=== PATIENT | female | born 1985 | race Caucasian/White ===

== ENCOUNTER 2016-11-15 06:10 | Inpatient (IN) | payer OTHER ==
--- NOTE | 2016-11-13 13:31 | History & Physical ---
General Information and HPI MD Statement: I have seen and personally examined ROMANA PULIDO and documented this H&P. The patient is a 30 year old female at 39 ] weeks and [2] days gestation who presented with a chief complaint of [elective repeat ]. Source of Information: patient Exam Limitations: no limitations History of Present Illness: 30-year-old G5 para 20-2 at 39 weeks 2 days intrauterine , here for elective repeat section. Patient has no complaints, denies contractions, vaginal bleeding or leakage of fluid. Reports good movement. care started at 18 weeks, prior section 2, patient is on methadone maintenance program, she takes subtle 65 mg daily. GBS negative , hemoglobin A1c 4.8 Allergies/Medications Allergies: Coded Allergies: No Known Drug Allergies (11/15/16) latex (ITCHING 11/15/16) Home Med list Doxylamine/Pyridoxine HCl (DicleStarteeds Dr 10-10 MG Tablet) 10 MG-10 MG TABLET.DR 2 TAB PO QPM NAUSEA (Reported) Methadone HCl 10 MG/5 ML SOLUTION 65 MG PO DAILY MENTAL HEALTH (Reported) Vit No.130/Iron/FA ( Tablet) 27 MG IRON-800 MCG TABLET 1 TAB PO DAILY (Reported) Compliance With Home Meds: GOOD Past History exploitation analyst History : 5 Para: 2 Last Menstrual Period: Unknown Estimated Delivery Date: 11/20/2016 Past exploitation analyst History: section x1 Past Pregnancies Past Pregnancies: Date of Delivery: 06/27/2013 Gestational Age: 42 weeks Weight: 7 lbs. 9 oz. Type of Delivery: Anesthesia: spinal Complications: None Medical History Blood Transfusion Hx: No Neurological: NONE EENT: otitis media Cardiovascular: NONE Respiratory: asthma Gastrointestinal: NONE Hepatic: NONE Renal: NONE Musculoskeletal: NONE Psychiatric: depression, opioid dependence Endocrine: NONE Blood Disorders: NONE Cancer(s): NONE TUBER MACHINE CUTTER/Reproductive: NONE Other Medical Hx: vertigo Surgical History Pertinent Surgical History: , N Past Family/Social History Psychosocial History Where do you live? Home Primary Language: Albanian Smoking Status: Current Everyday Smoker ETOH Use: denies use Illicit Drug Use: patient takes methadone maintenance 65 mg per day Review of Systems Review of Systems Constitutional: Reports: no symptoms. EENTM: Reports: no symptoms. Cardiovascular: Reports: no symptoms. Respiratory: Reports: no symptoms. GI: Reports: no symptoms. Genitourinary: Reports: see HPI. Musculoskeletal: Reports: no symptoms. Skin: Reports: no symptoms. Neurological/Psychological: Reports: no symptoms. Hematologic/Endocrine: Reports: no symptoms. Immunologic/Allergic: Reports: no symptoms. All Other Systems: Reviewed and Negative Post Menopausal: No Exam & Diagnostic Data Obstetric Exam Wgt Gained During : 26lbs Pelvimetry: adequate Dilation (cm): 0 Effacement (%): 20 Station: -3 Membranes: intact Fluid: unknown Fundal Height (cm): 39 Multiple Gestation? No Contractions: occasional Infant #1 - FHR Baseline: 140 Category: 1 Estimated Weight: 3000g Presentation: vertex Patient for Induction? No Physical Exam: VSS General: NAD Abdomen: gravid, soft, nontender Ext: DCT(-) Labs Blood Type & Rh: O positive Antibody Screen: negative Hct/Hgb & Platelets #1: 12.3/37%,PLT [id number] Hct/Hgb & Platelets #2: 12.9/38.6%,PLT [id number] Rubella: immune VDRL #1: negative VDRL #2: negative HbsAg: negative HIV #1: negative HIV #2 negative 1 Hr PG: pt refused Group B Strep: negative Initial Ultrasound: IUP at 18 wks Anatomy Ultrasound: normal Genetic Testing: normal Assessment/Plan Assessment/Plan: 30-year-old G5 para 2021, 39 weeks 2 days intrauterine , prior section,pt is on methadone maintenance 1. Admit patient. 2. Prepare for OR for repeat section As Ranked By This Provider Problem List: 1. 2. History of Core Measures/Miscellaneous Venous Thromboembolism VTE Risk Factors: / VTE Contraindications: No Contraindications VTE Prophylaxis Ordered Inpt: Early Ambulation VTE Diagnosis: No Beta Suzanne Is Beta Suzanne a Home Med? No Antibiotics Is Patient on Antibiotics? No Attending MD Review Statement Attending Statement Attending MD Statement: examined this patient, discussed with family, discussed w/nursing Attending Statement Attending MD Statement: examined this patient, discussed with family, discussed w/nursing
[~2016-11-15] VITALS: Ht 154.9 cm; Wt 73.5 kg
[~2016-11-15 06:10] MED LIST: AUGMENTIN 875 M1 TAB PO; BUPROPION HCL150 M4 PO; BUPROPION HCL150 MG PO; MECLIZINE HCL25 MG PO; METHADONE10 MG/5 M2 PO; MULTI-DAY VITA1 EACH PO; NUTRITIONAL PO; PROAIR HFA0.09 MG/Ac INH; ROBITUSSIN W/CO10 ML PO; ZOFRAN ODT4 M1 PO
[2016-11-15] MEDS ORDERED: PRENATAL TABLE1 EAC2 PO (09:58)
[2016-11-15] MEDS ORDERED: DICLEGIS DR 101 EACH PO (10:02)
[2016-11-15 10:41] VITALS: BP 138/89
--- NOTE | 2016-11-15 11:31 | Operative Report ---
Operative/Inv Procedure Report Surgery Date: 11/15/16 Name of Procedure: Repeat low transverse section via Pfannenstiel Pre-Operative Diagnosis: 39 2/7wks, prior section, for elective repeat Post-Operative Diagnosis: same Estimated Blood Loss: 600ml Surgeon/Jig Builder Helper: JORGE L MISHRA,MAHESH Leblanc MD Anesthesia: spinal IV Fluids: 1800ml LR Urine Output: 300ml clear urine at the end of procedure Specimens: placenta Complications: None Condition: Stable Operative Indication: 30-year-old G5 para 20-2 at 39 weeks 2 days intrauterine , prior section, for elective repeat Operative/Procedure Note Note: The patient was taken to the operating room where spinal anesthesia was found to be adequate. She was then prepared and draped in the usual sterile fashion in the dorsosupine position with a leftward tilt. A Pfannenstiel skin incision was then made with the scalpel and carried through to the underlying layer of the fascia with the Bovie. The fascia was incised in the midline and the incision extended laterally with the Cramer scissors. The inferior aspect of this fascial incision was then grasped with the Corie clamps, elevated, and the underlying rectus muscle dissected off with Cramer scissors. Attention was then turned to the superior aspect of this incision which, in a similar fashion, was grasped, tented up with Corie clamps, and the rectus muscle dissected off with Cramer scissors. The rectus muscle was then in the midline, and the peritoneum identified, tented up, and entered sharply with the Metzenbaum scissors. The peritoneal incision was then extended superiorly and inferiorly with good visualization of the bladder. The bladder blade was then inserted and the vesicouterine peritoneum identified, grasp with the pickup and entered sharply with the Metzenbaum scissors. The incision was then extended laterally and the bladder flap created digitally. The bladder blade was then reinserted and the lower uterine segment incised in a transverse fashion with the scalpel. The uterine incision was then extended laterally. The bladder blade was removed and the infant head delivered atraumatically. The nose and mouth was suctioned with the suction bulb, and cord clamped and cut. The patient was handed off to the waiting pediatricians. Cord blood was sent. The placenta was then removed manually, the uterus exteriorized, and cleared of all clots and debris. The uterine incision was repaired with 0 Vicryl in a running locked fashion. A second layer of the same suture was used to obtain hemostasis. And the right site corner of the uterine incision bleeding was noticed. And the [place] stitch was placed at right site corner of the incision , hemostasis assured. In the midline and the incision small bleeding encountered, 2 figure of 8 suture was used to achieve hemostasis. The uterus returned to the abdomen, the gutters were cleared of all clots, Surgicel was placed around the uterine incision site. The peritoneum closed with 3-0 Vicryl. The rectus muscle were reapproximated with 2-0 Vicryl. The fascia was reapproximated with 0 Vicryl in a running fashion. 3O plain suture was used to reapproximated subcutaneous adipose tissue. The skin was closed with 4-0 Vicryl subcuticularly. The patient tolerated the procedure well. Sponge, lap and needle counts were correct 2. Patient was taken to the recovery room in stable condition Findings: Live female infant in cephalic presentation, DOMINIQUE position. Clear amniotic fluid upon entering the uterus, pediatrics present at delivery. weigh 3010 g, 9 and 9. Normal uterus and tubes and ovaries
[2016-11-15 11:58] LABS: ABSOLUTE BASOPHIL COUNT 0 /CUMM (0.0-0.2); ABSOLUTE EOSINOPHIL COUNT 0 /CUMM (0.0-0.7); ABSOLUTE MONOCYTE COUNT 0.3 /CUMM (0.10-0.60); BASOPHIL % 0.2 % (0.0-2.0); EOSINOPHIL % 0.2 % (0-5); MEAN CORPUSCULAR HGB 29.5 PG (27.0-31.0); MEAN CORPUSCULAR VOLUME 88.5 FL (81.0-99.0)
[2016-11-15 12:12] LABS: ABSOLUTE GRANULOCYTE CT 15.8 /CUMM (1.4-6.5); ABSOLUTE LYMPH COUNT 1.7 /CUMM (1.2-3.4); HEMATOCRIT 41.1 % (37-47); MEAN CORPUSCULAR HGB CONC 33.3 G/DL (33.0-37.0); MEAN PLATELET VOLUME 10.6 FL (7.4-10.4); PLATELET COUNT 285 /CUMM (130-400); RED BLOOD CELL CT 4.65 /CUMM (4.20-5.40)
[2016-11-15 12:14] LABS: WHITE BLOOD CELL COUNT 17.9 /CUMM (4.8-10.8)
[2016-11-15 12:26] LABS: GRANULOCYTE % 88.1 % (42.2-75.2)
[2016-11-16 09:45] LABS: ABSOLUTE BASOPHIL COUNT 0.1 /CUMM (0.0-0.2); ABSOLUTE EOSINOPHIL COUNT 0 /CUMM (0.0-0.7); ABSOLUTE GRANULOCYTE CT 9.8 /CUMM (1.4-6.5); ABSOLUTE LYMPH COUNT 3.6 /CUMM (1.2-3.4); MEAN CORPUSCULAR VOLUME 89.9 FL (81.0-99.0)
[2016-11-16 09:48] LABS: BASOPHIL % 0.4 % (0.0-2.0); EOSINOPHIL % 0.2 % (0-5); GRANULOCYTE % 67.4 % (42.2-75.2); MEAN CORPUSCULAR HGB 29.6 PG (27.0-31.0); MEAN PLATELET VOLUME 11.2 FL (7.4-10.4); PLATELET COUNT 238 /CUMM (130-400); RBC DISTRIBUTION WIDTH 13.3 % (11.5-14.5); WHITE BLOOD CELL COUNT 14.5 /CUMM (4.8-10.8)
[2016-11-16 09:50] LABS: HEMATOCRIT 31.1 % (37-47); RED BLOOD CELL CT 3.46 /CUMM (4.20-5.40)
--- NOTE | 2016-11-16 14:27 | PN- OBGYN ---
Surgical Brief Attending Note Brief Attending Note: NO COMPLAINTS. DOING WELL. +AMBULATING. HAS NOT YET VOIDED. +TOLERATING PAIN AND PO. . SMALL LOCHIA PER NURSING. VSSAF FF@u INC: C/D/I EXT: NO CALF TENDERNESS, 2+PEDAL EDEMA Laboratory Tests 11/16/16 0709: CBC w Diff NO MAN DIFF REQ, RBC 3.46 L, MCV 89.9, MCH 29.6, RDW 13.3, MPV 11.2 H, Gran % 67.4, Lymphocytes % 25.1, Monocytes % 6.9, Eosinophils % 0.2, Basophils % 0.4, Absolute Granulocytes 9.8 H, Absolute Lymphocytes 3.6 H, Absolute Monocytes 1.0 H, Absolute Eosinophils 0, Absolute Basophils 0.1, PUBS MCHC 33.0 11/15/16 1147: Estimated GFR > 60, Uric Acid 5.7, AST 24, ALT 25, Lactate Dehydrogenase 745 H, CBC w Diff NO MAN DIFF REQ, RBC 4.65, MCV 88.5, MCH 29.5, RDW 13.0, MPV 10.6 H, Gran % 88.1 H, Lymphocytes % 9.6 L, Monocytes % 1.9, Eosinophils % 0.2, Basophils % 0.2, Absolute Granulocytes 15.8 H, Absolute Lymphocytes 1.7, Absolute Monocytes 0.3, Absolute Eosinophils 0, Absolute Basophils 0, PUBS MCHC 33.3 11/15/16 1145: Ur Random Creatinine Cancelled, U Random Total Protein Cancelled 11/15/16 1145: Ur Random Creatinine 29.5, U Random Total Protein 8.3, Protein/Creatinin Ratio 0.2 11/15/16 1145: Urine Color YEL, Urine Clarity CLEAR, Urine pH 7.0, Ur Specific [place] 1.010, Urine Protein NEG, Urine Ketones NEG, Urine Nitrite NEG, Urine Bilirubin NEG, Urine Urobilinogen 0.2, Ur Leukocyte Esterase NEG, Ur Microscopic SEDIMENT EXAMINED, Urine RBC 1-3, Urine WBC RARE, Ur Epithelial Cells RARE, Urine Mucus RARE, Urine Hemoglobin TRACE-LYSED, Urine Glucose NEG Microbiology 11/15 0932 URINE ROUT: Urine Culture - CAN Cancelled: DUPLICATE ORDER 11/15 0800 URINE ROUT: Urine Culture - RES A/P POD 1. DOING WELL. ROUTINE POSTOP CARE. RESUME METHADONE MAINTENANCE
--- NOTE | 2016-11-17 09:28 | PN- OBGYN ---
Surgical Brief Attending Note Brief Attending Note: POD#2 pt is ambulating, no complaints, incisional pain is controlled by pain medication, tolerate diet, void without difficulties, flatus (+) PE: VSS CV RRR Lungs CTA B/L Abdomen: soft, nontender, uterus firm , fundus below umbilicus, incision D/C/I. lochia mild.small rash noted at buttocks ( itching as per pt) Ext: DCT (-) A/P: 30 yo, s/p RLTCS, POD #2 1. encourage ambulation and . 2. pain management as needed 3. hydrocortison cream for skin rash at buttocks 4.RT PP care
[2016-11-17] MEDS ORDERED: PERCOCET 5-3251 EACH PO (22:30)
[2016-11-17] MEDS ORDERED: IBUPROFEN800 M1 PO (22:30)
--- NOTE | 2016-11-18 11:52 | PN- OBGYN ---
Surgical Brief Attending Note Brief Attending Note: pt without complaints. doing well. desires additional stay as is staying for further observation for withdrawal symptoms. She is ambulating, tolerating pain and po. +flatus. +breast and bottlefeeding. Normal lochia VSSAF FF@U incision: c/d/i, appropriately tender ext: no calf tenderness, 1+ pedal edema b/l Laboratory Tests 11/16/16 0709: CBC w Diff NO MAN DIFF REQ, RBC 3.46 L, MCV 89.9, MCH 29.6, RDW 13.3, MPV 11.2 H, Gran % 67.4, Lymphocytes % 25.1, Monocytes % 6.9, Eosinophils % 0.2, Basophils % 0.4, Absolute Granulocytes 9.8 H, Absolute Lymphocytes 3.6 H, Absolute Monocytes 1.0 H, Absolute Eosinophils 0, Absolute Basophils 0.1, PUBS MCHC 33.0 a/p POD 3. s/p RLTCS. Doing well. Continue routine postop care. anticipate discharge in AM. Discharge precautions advised.
--- NOTE | 2016-11-22 12:56 | Discharge Summary ---
Visit Information Visit Dates Admission Date: 11/15/16 Discharge Date: 11/19/16 Hospital Course Course Attending Physician: MAHESH COATS MD Primary Care Physician: SEDRICK PAULINO APRN [facility] Course: 30yo, she was admitted for elective repeat on 11/15/2016, she underwent repeat , she delivered a live infant without complications. During the hospital stay, she remained in stable condition, afebrile, vitals WNL, tolerate diet, void without difficulties, uterus firm, fundus below umbilicus, incision D/C/I. lochia mild. she was discharged on 11/19/2016 Complications: none Allergies: Coded Allergies: No Known Drug Allergies (11/15/16) latex (ITCHING 11/15/16) Significant Procedures: repeat low transverse Disposition Summary Disposition Principal Diagnosis: trem , prior Additional Diagnosis: metahdone dependence Discharge Disposition: home or self care Discharge Instructions General Discharge Information Code Status: Full Code Patient's Diet: regular Patient's Activity: as tolerated Follow-Up Instructions/Appts: f/u in office in 2 wks and 6 wks Medications at Discharge Discharge Medications: Stop taking the following medications: Doxylamine/Pyridoxine HCl (Diclegis Dr 10-10 MG Tablet) 10 MG-10 MG TABLET. ORAL Every night Continue taking these medications: Methadone HCl (Methadone HCl) 10 MG/5 ML SOLUTION 65 Milligram ORAL DAILY Comments: Last Taken: 11/19/16 Time: 8:00 am Vit No.130/Iron/FA ( Tablet) 27 MG IRON-800 MCG TABLET 1 Tablet ORAL DAILY Start taking the following new medications: Ibuprofen (Ibuprofen) 800 MG TABLET 800 Milligram ORAL EVERY SIX HOURS NEEDED as needed for UTERINE CRAMPING Qty = 30 No Refills Comments: Last Taken: 11/19/16 Time: 8:00 am Oxycodone HCl/Acetaminophen (Percocet 5-325 MG Tablet) 5 MG-325 MG TABLET 1 Tablet ORAL EVERY 4 HOURS NEEDED as needed for PAIN SCALE 4-6 (MODERATE ) Qty = 30 No Refills Comments: Last Taken: 11/19/16 Time: 8:00 am Copies To: MAHESH COATS MD, MD Review Statement Documenting Attending: MAHESH COATS MD
== END 2016-11-19 09:05 | DRG 540 ==
LOC: GNO 06:10
PROVIDERS: ADMIT Obstetrics & Gynecology
PROC: 10D00Z1 Extraction of Products of Conception, Low, Open Approach (ICD-10-PCS; principal; 2016-11-15)
DX: O34.211 Maternal care for low transverse scar from previous cesarean delivery (principal); N85.8 Other specified noninflammatory disorders of uterus; Z3A.39 39 weeks gestation of pregnancy; O99.324 Drug use complicating childbirth; F11.20 Opioid dependence, uncomplicated; Z37.0 Single live birth
CPT/HCPCS: GNOS; 36415; 80307; 81001; 82570; 87086; 88307; J0131; J0690; J1885; J7120

== ENCOUNTER 2017-05-17 18:15 | Emergency (ER) | payer OTHER ==
[~2017-05-17] VITALS: Ht 154.9 cm; Wt 68.0 kg
[~2017-05-17 18:15] MED LIST changes: +DICLEGIS DR 101 EACH PO; +IBUPROFEN800 M1 PO; +PERCOCET 5-3251 EACH PO; +PRENATAL TABLE1 EAC2 PO
[2017-05-17 19:05] LABS: ABSOLUTE BASOPHIL COUNT 0.1 /CUMM (0.0-0.2); ABSOLUTE EOSINOPHIL COUNT 0.2 /CUMM (0.0-0.7); ABSOLUTE GRANULOCYTE CT 10.3 /CUMM (1.4-6.5); ABSOLUTE LYMPH COUNT 3.4 /CUMM (1.2-3.4); ABSOLUTE MONOCYTE COUNT 0.6 /CUMM (0.10-0.60); BASOPHIL % 0.5 % (0.0-2.0); EOSINOPHIL % 1.3 % (0-5); GRANULOCYTE % 70.8 % (42.2-75.2); MEAN CORPUSCULAR HGB 30.1 PG (27.0-31.0); MEAN CORPUSCULAR HGB CONC 33.3 G/DL (33.0-37.0); MEAN CORPUSCULAR VOLUME 90.6 FL (81.0-99.0); MEAN PLATELET VOLUME 9.8 FL (7.4-10.4); PLATELET COUNT 286 /CUMM (130-400); RBC DISTRIBUTION WIDTH 13.6 % (11.5-14.5); RED BLOOD CELL CT 4.53 /CUMM (4.20-5.40); WHITE BLOOD CELL COUNT 14.5 /CUMM (4.8-10.8)
--- NOTE | 2017-05-17 20:48 | ED GI/GU/ABDOMINAL COMPLAINT ---
History of Present Illness General Chief Complaint: Abdominal Pain/Flank Pain Stated Complaint: "HERNIATED BELLY BUTTON" SENT BY OBGYN Source: patient Exam Limitations: no limitations Vital Signs & Intake/Output Vital Signs & Intake/Output Vital Signs Date Time Temp Pulse Resp B/P B/P Pulse O2 O2 Flow FiO2 Mean Ox Delivery Rate 05/17 2104 97.2 75 18 118/78 97 Room Air Room Air 05/17 1820 96.8 78 18 124/84 98 Room Air Allergies Coded Allergies: latex (ITCHING 11/15/16) Reconcile Medications Etonogestrel/Ethinyl Estradiol (Nuvaring Vaginal Ring) 0.12 MG -0.015 MG/24 HR VAG.RING 1 EACH VG Q30D CONTROL (Reported) use for 3 weeks, skip for 1 week Methadone HCl 10 MG/5 ML SOLUTION 65 MG PO DAILY MENTAL HEALTH (Reported) Triage Note: C/O WORSENING UMBILICAL PAIN X 1 WEEK. DXD WITH UMBILICAL HERNIA IN 10/2016, WHILE . ALSO STATE SHE HAS HAD CHILLS WITH DIARRHEA. LMP: 2 WEEKS AGO. Triage Nurses Notes Reviewed? yes ? N Is pt currently ? No Onset: Abrupt Duration: intermittent Timing: recent history Quality/Severity: aching Severity Numbers: 3 Location: periumbilical Radiation: no radiation HPI: Patient is a 31-year-old female who presents emergency room stating that approximate one year ago patient while she was 6 months had acute onset of localized periumbilical pain where she was diagnosed with a periumbilical hernia at the time. Patient states that since she's been complaining of intermittent hernia symptom exacerbation of abdominal pain where she presses on her abdomen and self reduces the hernia. Patient states that today she was discussing her abdominal pain with her DENTISTRY TEACHER Dr. COATS which she advised patient to present to the emergency room patient states that at rest she has no symptoms Denies any fever chills nausea vomiting dysuria hematuria vaginal bleeding vaginal discharge chest pain shortness of breath back pain. Last bowel movement was today no blood no melena noted. Patient is able to tolerate by mouth Symptoms are usually exacerbated with physical activity (CHUCKIE HA,MONICA) Past History Travel History Traveled to [place] past 21 day No Medical History Any Pertinent Medical History? see below for history Neurological: NONE EENT: otitis media Cardiovascular: NONE Respiratory: asthma Gastrointestinal: NONE Hepatic: NONE Renal: NONE Musculoskeletal: NONE Psychiatric: depression, opioid dependence Endocrine: NONE Blood Disorders: NONE Cancer(s): NONE CORRECTIONS CADET/Reproductive: NONE Other Medical Hx: vertigo Surgical History Surgical History: , N Psychosocial History What is your primary language Welsh Tobacco Use: Current Daily Use Daily Tobacco Use Amount/Type: => 5 Cigarettes daily ETOH Use: denies use Family History Hx Contributory? No (MONICA HINKLE) Review of Systems Review of Systems Constitutional: Reports: no symptoms. EENTM: Reports: no symptoms. Respiratory: Reports: no symptoms. Cardiovascular: Reports: no symptoms. GI: Reports: see HPI, abdominal pain. Genitourinary: Reports: no symptoms. Musculoskeletal: Reports: no symptoms. Skin: Reports: no symptoms. Neurological/Psychological: Reports: no symptoms. Hematologic/Endocrine: Reports: no symptoms. Immunologic/Allergic: Reports: no symptoms. All Other Systems: Reviewed and Negative (MONICA HINKLE) Physical Exam Physical Exam General Appearance: no apparent distress, comfortable Gastrointestinal: normal bowel sounds, soft Comments: Well-developed well-nourished person in no acute distress HEENT: Normal EENT exam, Neck: Supple, no lymphadenopathy, normal range of motion without pain or tenderness Back: Nontender, no CVA tenderness. Cardiovascular: Regular rate and rhythms no murmurs rubs or gallops, normal JVP Respiratory: Chest nontender. No respiratory distress.breath sounds clear to auscultation bilaterally Abdomen: Soft, periumbilical point tenderness noted no overt hernia upon palpation nondistended, no appreciable organomegaly. Normal bowel sounds. No ascites Extremity: No edema, no calf tenderness to palpation, normal and equal pulses. Neuro: Alert oriented x3, motor sensory normal, Skin: No appreciable rash on exposed skin, skin is warm and dry. Psych: Mood and affect is normal, memory and judgment is normal. Core Measures ACS in differential dx? No Severe Sepsis Present: No Septic Shock Present: No (MONICA HINKLE) Progress Differential Diagnosis: appendicitis, biliary colic, bowel obstruction, cholecystitis, diverticulitis, ectopic , endometritis, gastritis, hernia, ischemic bowel, inflamm bowel dis, intrauterine , kidney stone, ovarian cyst, ovarian torsion, pancreatitis, SBO Plan of Care: Orders Procedure Date/time Status LACTIC ACID 05/17 2133 Active LACTIC ACID 05/17 1833 Complete URINALYSIS 05/17 1826 Complete HUMAN BETA HCG SCREEN 05/17 1826 Complete CBC WITHOUT DIFFERENTIAL 05/17 1826 Complete BASIC METABOLIC PANEL 05/17 1826 Complete TYPE & SCREEN (NOT X-MATCH) 05/17 1826 Complete Current Medications Sig/Prabhjot Start time Last Medication Dose Stop Time Status Admin Ibuprofen 600 MG ONCE ONE 05/17 2115 CANr (Motrin) 05/17 2116 Laboratory Tests 05/17/171923: Urine Color YEL, Urine Clarity CLEAR, Urine pH 6.0, Ur Specific [place] 1.025, Urine Protein NEG, Urine Ketones NEG, Urine Nitrite NEG, Urine Bilirubin NEG, Urine Urobilinogen 0.2, Ur Leukocyte Esterase NEG, Ur Microscopic EXAM NOT REQUIRED, Urine Hemoglobin NEG, Urine Glucose NEG 05/17/171844: Lactic Acid 1.0 05/17/171844: Anion Gap 11, Estimated GFR > 60, BUN/Creatinine Ratio 21.3, Glucose 113 H, Calcium 10.0, Total Beta HCG NEGATIVE, CBC w Diff NO MAN DIFF REQ, RBC 4.53, MCV 90.6, MCH 30.1, RDW 13.6, MPV 9.8, Gran % 70.8, Lymphocytes % 23.4, Monocytes % 4.0, Eosinophils % 1.3, Basophils % 0.5, Absolute Granulocytes 10.3 H, Absolute Lymphocytes 3.4, Absolute Monocytes 0.6, Absolute Eosinophils 0.2, Absolute Basophils 0.1, PUBS MCHC 33.3 Patient upon initial evaluation was in no apparent distress. . No signs of incarceration or strength elation of hernia on exam at this time. She also states the patient has chronic leukocytosis CT SCAN SHOWS UNCOMPLICATED UMBILICAL HERNIA NO SIGNS OF ACUTE ABNORMALITY No signs of incarceration or strength elation of hernia. Patient was strongly advised to follow-up with discharge instructions and plan and she will comply. Patient declined pain medications while in the emergency room (CHUCKIE HA,MONICA) Diagnostic Imaging: Viewed by Me: CT Scan. Radiology Impression: no acute abnormality Initial ED EKG: none Comments: PATIENT: ROMANA PULIDO PRESENT AGE: 31 PATIENT ACCOUNT NO: [id number] : 83 LOCATION: ER ORDERING PHYSICIAN: MONICA HA SERVICE DATE: 05/17/17 EXAM TYPE: CAT - CT ABD & PELVIS W IV CONTRAST EXAMINATION: CT ABDOMEN AND PELVIS with CONTRAST CLINICAL INFORMATION: Periumbilical hernia. Abdominal pain. COMPARISON: None TECHNIQUE: Helical CT scan of abdomen and pelvis. IV contrast: 94 Oral contrast: Optiray 320 Reconstruction: Coronal and sagittal reformatted images performed at CT scanner by the technologist. FINDINGS: LUNG BASES: The visualized lung bases are unremarkable. LIVER, GALLBLADDER, AND BILIARY TREE: The liver is normal in size, shape, and attenuation. No focal hepatic lesion or biliary ductal dilatation is present. The gallbladder is unremarkable with no evidence of radiopaque gallstones, gallbladder wall thickening, or obvious pericholecystic inflammatory changes. PANCREAS: No acute change of the pancreas. No mass. No pancreatic duct dilatation. SPLEEN: Spleen normal in size and contour. No focal lesion. ADRENAL GLANDS: Adrenal glands are normal in size. No focal mass. KIDNEYS AND URETERS: The kidneys are normal in size, shape, and attenuation. No hydronephrosis, hydroureter, or calculi seen. No perinephric stranding. BLADDER: Unremarkable. GASTROINTESTINAL TRACT: The small and large bowel are unremarkable. The appendix is unremarkable. MESENTERY: No focal inflammation. No free fluid. No free air. ABDOMINAL WALL: Fat-containing umbilical hernia measures 2.4 x 2.4 x 2.1 cm. LYMPH NODES: Normal. VASCULAR: Unremarkable. PELVIC VISCERA: Uterus is anteverted. No adnexal abnormality. OSSEOUS STRUCTURES: Unremarkable. IMPRESSION: No acute abnormality CT scan abdomen pelvis. DICTATED BY: ALEKSEY CHEN MD DATE/TIME DICTATED:05/17/172120 FORESTRY CONSERVATION WORKER:ANJEL DATE/TIME TRANSCRIBED:05/17/172120 (MONICA HINKLE) Departure Departure Disposition: HOME OR SELF CARE Condition: Stable Clinical Impression Primary Impression: Umbilical hernia Referrals: PATIENT HAS NO PRIMARY CARE DR (PCP/Family) AREN MISHRA,COLE Colon Additional Instructions: As discussed begin [id number] ibuprofen for pain and inflammation. Please do not physically exert herself or lift heavy objects and when arising out of bed rolled to the side first instead of using abdominal muscles. If symptoms worsen or IF YOU develop any new concerning symptom return to emergency room. Tomorrow please follow up and establish surgeon Dr. Breen for further evaluation treatment. Departure Forms: Customer Survey General Discharge Information (MONICA HINKLE) PA/MERCHANDISE ADJUSTMENT CLERK Co-Sign Statement Statement: ED Attending supervision documentation- [] I saw and evaluated the patient. I have also reviewed all the pertinent lab results and diagnostic results. I agree with the findings and the plan of care as documented in the PA's/MERCHANDISE ADJUSTMENT CLERK's documentation. [X] I have reviewed the ED Record and agree with the PA's/MERCHANDISE ADJUSTMENT CLERK's documentation. [] Additions or exceptions (if any) to the PAs/MERCHANDISE ADJUSTMENT CLERK's note and plan are summarized below: [] (SY MISHRA,AIDA High)
[2017-05-17] MEDS ORDERED: NUVARING VAGIN1 EACH VG (21:23)
--- NOTE | 2017-05-17 21:30 | CT SCAN REPORT ---
EXAMINATION: CT ABDOMEN AND PELVIS with CONTRAST CLINICAL INFORMATION: Periumbilical hernia. Abdominal pain. COMPARISON: None TECHNIQUE: Helical CT scan of abdomen and pelvis. IV contrast: 94 Oral contrast: Optiray 320 Reconstruction: Coronal and sagittal reformatted images performed at CT scanner by the technologist. FINDINGS: LUNG BASES: The visualized lung bases are unremarkable. LIVER, GALLBLADDER, AND BILIARY TREE: The liver is normal in size, shape, and attenuation. No focal hepatic lesion or biliary ductal dilatation is present. The gallbladder is unremarkable with no evidence of radiopaque gallstones, gallbladder wall thickening, or obvious pericholecystic inflammatory changes. PANCREAS: No acute change of the pancreas. No mass. No pancreatic duct dilatation. SPLEEN: Spleen normal in size and contour. No focal lesion. ADRENAL GLANDS: Adrenal glands are normal in size. No focal mass. KIDNEYS AND URETERS: The kidneys are normal in size, shape, and attenuation. No hydronephrosis, hydroureter, or calculi seen. No perinephric stranding. BLADDER: Unremarkable. GASTROINTESTINAL TRACT: The small and large bowel are unremarkable. The appendix is unremarkable. MESENTERY: No focal inflammation. No free fluid. No free air. ABDOMINAL WALL: Fat-containing umbilical hernia measures 2.4 x 2.4 x 2.1 cm. LYMPH NODES: Normal. VASCULAR: Unremarkable. PELVIC VISCERA: Uterus is anteverted. No adnexal abnormality. OSSEOUS STRUCTURES: Unremarkable. IMPRESSION: No acute abnormality CT scan abdomen pelvis.
[2017-05-17 22:29] VITALS: BP 122/75
== END 2017-05-17 22:29 ==
LOC: ERH 18:15
PROVIDERS: Emergency Medicine
DX: K42.9 Umbilical hernia without obstruction or gangrene (principal)
CPT/HCPCS: 74177; 81003